=== PATIENT | male | born 1930 | race Caucasian/White ===

== ENCOUNTER 2016-10-23 23:41 | Inpatient (IN) | payer MEDICARE ==
[~2016-10-23] VITALS: Ht 165.1 cm; Wt 83.0 kg
[2016-10-23 23:45] VITALS: BP 141/90; PULSE 91; RESP 20; TEMP 99.1; O2SAT 100
[2016-10-24] VITALS (9 sets, daily range): BP systolic 99–170; BP diastolic 58–80; PULSE 78–109; RESP 15–20; TEMP 96.5–98.8; O2SAT 94–98
[2016-10-24] MEDS ORDERED: SODIUM CHLORID 0.9% 500 ML INJ 500 ML IV ONE (00:15)
[2016-10-24] MEDS ORDERED: SODIUM CHLORIDE 0.9% FLUSH 10 ML FLUSH IV FLUSH PRN ×2 (00:15→01:30)
[2016-10-24] MEDS ORDERED: ONDANSETRON HCL 4 MG/2 ML VIAL IVP ONE (00:15)
--- NOTE | 2016-10-24 00:32 | PD ---
HPI . weakness / loss of appetite Chief Complaint: General Weakness Time Seen by Provider: 23:43 Travel History International Travel<30 days: No Contact w/Intl Traveler<30days: No Traveled to known affect area: No History of Present Illness HPI 86 year old male with a history of diabetes presents via [facility] with complaints of generalized weakness and loss of appetite. Patient reports that since taking Bactrim for a UTI he has had no appetite and has been feeling weak. Per daughter, he took 3 days of single dose Bactrim. Daughter reports that he had "non-stop diarrhea" for the first two days of the medication and then nausea and vomiting on the third day. He has been laying on the couch ever since and has not been eating. He has some low back pain that he attributes to laying on the couch. [facility] reports his glucose was 280 prior to arrival. Patient is reporting some abdominal bloating. Last bowel movement was on Sunday which was diarrhea. He denies any fever, chills, abdominal pain, cough, shortness of breath, chest pain, dysuria or frequency. They are vacationing from [place] and have no PCP in the area. [facility] Past Medical History Diabetes: Yes Social History Alcohol Use: Yes (last useage 2012) Tobacco Use: No Substance Use: No Allergies-Medications (Allergen,Severity, Reaction): Coded Allergies: No Known Allergies (Unverified , 10/24/16) Reported Meds & Prescriptions Reported Meds & Active Scripts Active Reported Bactrim (Sulfamethoxazole-Trimethoprim) 400-80 Mg Tab 1 Tab PO DAILY 3 Days Warfarin 3 Mg Tab 3.5 Mg PO WITH DINNER Glipizide XL (Glipizide) 2.5 Mg Tom 2.5 Mg PO WITH DINNER Take with breakfast or first main meal of the day Metformin (Metformin HCl) 850 Mg Tab 850 Mg PO DAILY With a meal Vitamin B-12 (Cyanocobalamin) 1,000 Mcg Tab 1,000 Mcg PO DAILY Vitamin D3 (Cholecalciferol) 1,000 Unit Tab 1,000 Units PO DAILY Review of Systems General / Constitutional: Positive: Other (generalized weakness ), No: Fever, Chills HENT: No: Headaches Cardiovascular: No: Chest Pain or Discomfort, Palpitations, Tachycardia Respiratory: No: Cough, Shortness of Breath, Wheezing Gastrointestinal: Positive: Loss of Appetite, No: Nausea, Vomiting, Diarrhea, Abdominal Pain Genitourinary: No: Frequency, Dysuria Musculoskeletal: Positive: Pain (low back) Skin: No Rash Neurologic: No: Dizziness, Syncope Physical Exam Narrative GENERAL: Awake and alert elderly male in no acute distress. SKIN: Focused skin assessment warm/dry. No rashes. HEAD: Atraumatic. Normocephalic. EYES: Pupils equal and round, reactive to light. No scleral icterus. No injection or drainage. Bilateral pytergiums. ENT: No nasal bleeding or discharge. Mucous membranes dry. NECK: Trachea midline. No JVD. Neck supple. No lymphadenopathy. CARDIOVASCULAR: Normal rate, irregular rhythm. No murmurs, gallops, or rubs. RESPIRATORY: No accessory muscle use. Clear to auscultation. Breath sounds equal bilaterally. GASTROINTESTINAL: Abdomen distended. Diffusely tender. No rebound or guarding. Superficial veins noted over abdomen. MUSCULOSKELETAL: No obvious deformities. No clubbing. No cyanosis. No edema. NEUROLOGICAL: Awake and alert. No obvious cranial nerve deficits. Motor grossly within normal limits. Normal speech. PSYCHIATRIC: Appropriate mood and affect; insight and judgment normal. Data Data Last Documented VS Vital Signs Date Time Temp Pulse Resp B/P Pulse Ox O2 Delivery O2 Flow Rate FiO2 10/24/16 01:00 104 20 170/79 98 10/24/16 00:00 Room Air 10/23/16 23:45 99.1 Orders Complete Blood Count With Diff (10/24/16 00:12) Comprehensive Metabolic Panel (10/24/16 00:12) Lipase (10/24/16 00:12) Lactic Acid (10/24/16 00:12) Urinalysis - C+S If Indicated (10/24/16 00:12) Ct Abd/Pel W/O Iv Contrast (10/24/16 00:12) Iv Access Insert/Monitor (10/24/16 00:12) Ecg Monitoring (10/24/16 00:12) Oximetry (10/24/16 00:12) Ondansetron Inj (Zofran Inj) (10/24/16 00:15) Sodium Chloride 0.9% Flush (Ns Flush) (10/24/16 00:15) Electrocardiogram (10/24/16 00:12) Chest, Single Ap (10/24/16 00:12) Sodium Chlorid 0.9% 500 Ml Inj (Ns 500 M (10/24/16 00:15) Act Partial Throm Time (Ptt) (10/24/16 00:12) Prothrombin Time / Inr (Pt) (10/24/16 00:12) Urinary Catheter Insert/Apply (10/24/16 01:10) Admit To Inpatient (10/24/16 ) Vital Signs (Adult) Q4H (10/24/16 01:28) Activity Oob With Assistance (10/24/16 01:28) Yarder Operator / Telemetry .CONTINUOUS (10/24/16 01:28) Diet 1800 Ada Cons Carb (10/24/16 Breakfast) Diet Heart Healthy (10/24/16 Breakfast) Sodium Chloride 0.9% Flush (Ns Flush) (10/24/16 01:30) Sodium Chloride 0.9% Flush (Ns Flush) (10/24/16 09:00) Comprehensive Metabolic Panel (10/25/16 06:00) Complete Blood Count With Diff (10/25/16 06:00) Pt Request For Service (10/24/16 01:28) Case Management Consult (10/24/16 01:28) Naloxone Inj (Narcan Inj) (10/24/16 01:30) Inpatient Certification (10/24/16 ) Consult Urology (10/24/16 ) Bedside Glucose FREDDY.AC&HS (10/24/16 01:32) Blood Glucose Goal (Criteria) (10/24/16 01:32) Hypoglycemia 70 Mg/Dl Or < (10/24/16 01:32) Notify Dr: Other (10/24/16 01:32) Dextrose 50% In Greg (Vial) Inj (D50w (Vi (10/24/16 01:45) Glucagon Inj (Glucagon Inj) (10/24/16 01:45) Insulin Aspart Supplemtl Scale (Novolog (10/24/16 07:00) Admit Order (Ed Use Only) (10/24/16 01:33) Labs Laboratory Tests Test 10/24/16 10/24/16 10/24/16 00:10 00:22 01:30 White Blood Count 14.3 TH/MM3 Red Blood Count 3.42 MIL/MM3 Hemoglobin 10.4 GM/DL Hematocrit 31.4 % Mean Corpuscular Volume 91.7 FL Mean Corpuscular Hemoglobin 30.3 PG Mean Corpuscular Hemoglobin 33.1 % Concent Red Cell Distribution Width 13.1 % Platelet Count 267 TH/MM3 Mean Platelet Volume 7.9 FL Neutrophils (%) (Auto) 82.5 % Lymphocytes (%) (Auto) 6.8 % Monocytes (%) (Auto) 10.3 % Eosinophils (%) (Auto) 0.1 % Basophils (%) (Auto) 0.3 % Neutrophils # (Auto) 11.8 TH/MM3 Lymphocytes # (Auto) 1.0 TH/MM3 Monocytes # (Auto) 1.5 TH/MM3 Eosinophils # (Auto) 0.0 TH/MM3 Basophils # (Auto) 0.0 TH/MM3 CBC Comment DIFF FINAL Differential Comment Prothrombin Time 22.9 SEC Prothromb Time International 2.0 RATIO Ratio Activated Partial 34.7 SEC Thromboplast Time Sodium Level 134 MEQ/L Potassium Level 4.3 MEQ/L Chloride Level 100 MEQ/L Carbon Dioxide Level 23.0 MEQ/L Anion Gap 11 MEQ/L Blood Urea Nitrogen 55 MG/DL Creatinine 4.97 MG/DL Estimat Glomerular Filtration 11 ML/MIN Rate Random Glucose 247 MG/DL Calcium Level 7.8 MG/DL Total Bilirubin 0.5 MG/DL Aspartate Amino Transf 14 U/L (AST/SGOT) Alanine Aminotransferase 16 U/L (ALT/SGPT) Alkaline Phosphatase 69 U/L Total Protein 6.7 GM/DL Albumin 3.0 GM/DL Lipase 162 U/L Lactic Acid Level 1.7 mmol/L Urine Color YELLOW Urine Turbidity HAZY Urine pH 5.5 Urine Specific [place] 1.013 Urine Protein TRACE mg/dL Urine Glucose (UA) 300 mg/dL Urine Ketones NEG mg/dL Urine Occult Blood MOD Urine Nitrite NEG Urine Bilirubin NEG Urine Urobilinogen LESS THAN 2.0 MG/DL Urine Leukocyte Esterase LARGE Urine RBC 67 /hpf Urine WBC /hpf Urine WBC Clumps FEW Urine Amorphous Sediment RARE Urine Bacteria RARE /hpf Urine Mucus FEW /lpf Microscopic Urinalysis Comment CULTURE INDICATED MDM Medical Decision Making Medical Screen Exam Complete: Yes Emergency Medical Condition: Yes Interpretation(s) EKG reveals atrial fibrillation versus sinus arrhythmia with frequent supraventricular premature complexes. Last Impressions Chest X-Ray 10/24/16 0012 Signed Impressions: Service Date/Time: Monday, October 24, 2016 00:15 - CONCLUSION: No acute finding is identified. Jay Aldana MD Abdomen/Pelvis CT 10/24/16 0012 Signed Impressions: Service Date/Time: Monday, October 24, 2016 00:39 - CONCLUSION: 1. Very distended urinary bladder with mild hydronephrosis and hydroureter bilaterally. Additionally, the prostate gland is enlarged raising suspicion for bladder outlet obstruction. There are dependent stones in the urinary bladder measuring up to 6 mm. 2. Non acute findings included cholelithiasis, small hiatal hernia , moderate atherosclerotic disease, and sigmoid diverticulosis. Jay Aldana MD Laboratory Tests Test 10/24/16 10/24/16 10/24/16 00:10 00:22 01:30 White Blood Count 14.3 TH/MM3 Red Blood Count 3.42 MIL/MM3 Hemoglobin 10.4 GM/DL Hematocrit 31.4 % Mean Corpuscular Volume 91.7 FL Mean Corpuscular Hemoglobin 30.3 PG Mean Corpuscular Hemoglobin 33.1 % Concent Red Cell Distribution Width 13.1 % Platelet Count 267 TH/MM3 Mean Platelet Volume 7.9 FL Neutrophils (%) (Auto) 82.5 % Lymphocytes (%) (Auto) 6.8 % Monocytes (%) (Auto) 10.3 % Eosinophils (%) (Auto) 0.1 % Basophils (%) (Auto) 0.3 % Neutrophils # (Auto) 11.8 TH/MM3 Lymphocytes # (Auto) 1.0 TH/MM3 Monocytes # (Auto) 1.5 TH/MM3 Eosinophils # (Auto) 0.0 TH/MM3 Basophils # (Auto) 0.0 TH/MM3 CBC Comment DIFF FINAL Differential Comment Prothrombin Time 22.9 SEC Prothromb Time International 2.0 RATIO Ratio Activated Partial 34.7 SEC Thromboplast Time Sodium Level 134 MEQ/L Potassium Level 4.3 MEQ/L Chloride Level 100 MEQ/L Carbon Dioxide Level 23.0 MEQ/L Anion Gap 11 MEQ/L Blood Urea Nitrogen 55 MG/DL Creatinine 4.97 MG/DL Estimat Glomerular Filtration 11 ML/MIN Rate Random Glucose 247 MG/DL Calcium Level 7.8 MG/DL Total Bilirubin 0.5 MG/DL Aspartate Amino Transf 14 U/L (AST/SGOT) Alanine Aminotransferase 16 U/L (ALT/SGPT) Alkaline Phosphatase 69 U/L Total Protein 6.7 GM/DL Albumin 3.0 GM/DL Lipase 162 U/L Lactic Acid Level 1.7 mmol/L Urine Color YELLOW Urine Turbidity HAZY Urine pH 5.5 Urine Specific [place] 1.013 Urine Protein TRACE mg/dL Urine Glucose (UA) 300 mg/dL Urine Ketones NEG mg/dL Urine Occult Blood MOD Urine Nitrite NEG Urine Bilirubin NEG Urine Urobilinogen LESS THAN 2.0 MG/DL Urine Leukocyte Esterase LARGE Urine RBC 67 /hpf Urine WBC /hpf Urine WBC Clumps FEW Urine Amorphous Sediment RARE Urine Bacteria RARE /hpf Urine Mucus FEW /lpf Microscopic Urinalysis Comment CULTURE INDICATED Differential Diagnosis Differentials include dehydration, medication adverse reaction, hyponatremia, hypokalemia, gastroenteritis, ileus, pyelonephritis, diverticulitis. Narrative Course Patient presents with complaints of loss of appetite and generalized weakness. He attributes these symptoms to recent course of bactrim for UTI. Patient was put on monitor and continuos oximetry, IV fluids were administered. Labs and CT of the abdomen were ordered. Patient is on coumadin for atrial fibrillation so we will also check an INR. The patient's creatinine was 4.97, the patient has a history of underlying renal insufficiency, is had a creatinine as high 6, however, the daughter states that the creatinine levels improved. The patient was taken off of the Cipro but was maintained on metformin. CT of the abdomen and pelvis reveals a large and distended bladder with enlarged prostate and bilateral hydronephrosis consistent with obstructive uropathy. The patient then had a Perez catheter placed, will need admission for obstructive uropathy with repeat creatinine levels and may benefit from nephrology input. Therefore , the on-call medical service was paged for admission as the patient's primary physician is located in the [facility]. The patient's UA was positive for infection, therefore, the patient was administered cefepime 2 g intravenously as he does meet sepsis criteria with white count of 14.3, heart rate of 101 upon arrival, and acute renal failure. Sepsis Criteria SIRS Criteria (2 or more): Heart rate over 90, WBC > 29024, < 4000 or > 10% bands Sepsis Criteria (SIRS+source): Infect source susp/known Severe Sepsis (+one): Acute Oliguria/Renal Failure Criteria Outcome: Meets severe sepsis criteria Physician Communication Physician Communication The on-call medical service was paged for admission. I discussed the patient with Dr. Gómez who agrees with admission. Diagnosis Primary Impression: Obstructive uropathy Additional Impressions: Acute renal failure Qualified Code: N17.9 - Acute renal failure, unspecified acute renal failure type Complicated UTI (urinary tract infection) Admitting Information Admitting Physician Requests: Admit Condition: Stable Noel Pickering MD Oct 24, 2016 00:32
[2016-10-24 00:45] LABS: AUTOMATED NEUTROPHIL # 11.8 TH/MM3 (1.8-7.7); BASOPHIL % 0.3 % (0.0-2.0); EOSINOPHIL % 0.1 % (0.0-4.0); HEMATOCRIT 31.4 % (39.0-51.0); HEMO FLAGS DIFF FINAL; LYMPH % 6.8 % (9.0-44.0); MEAN CELL VOLUME 91.7 FL (80.0-100.0); MEAN CORPUSCULAR HEMOGLOBIN 30.3 PG (27.0-34.0); MEAN CORPUSCULAR HGB CONC 33.1 % (32.0-36.0); MONO % 10.3 % (0.0-8.0); NEUT % 82.5 % (16.0-70.0); PLATELET COUNT 267 TH/MM3 (150-450); RED BLOOD COUNT 3.42 MIL/MM3 (4.50-5.90); RED CELL DISTRIBUTION WIDTH 13.1 % (11.6-17.2); WHITE BLOOD COUNT 14.3 TH/MM3 (4.0-11.0)
--- NOTE | 2016-10-24 00:45 | RADRPT ---
EXAM DATE/TIME: 10/24/2016 00:15 [facility] COMPARISON: No previous studies available for comparison. INDICATIONS : Short of breath. MEDICAL HISTORY : None. SURGICAL HISTORY : None. ENCOUNTER: Initial ACUITY: 1 day PAIN SCORE: 0/10 LOCATION: Bilateral chest FINDINGS: Portable AP view of the chest demonstrates a normal-sized cardiac silhouette. No effusion, consolidat ion, or pneumothorax is visualized. The bones and soft tissues demonstrate no acute abnormality. EKG lines overlie the patient. CONCLUSION: No acute finding is identified. Jay Aldana MD on October 24, 2016 at 0:42 Board Certified Radiologist. This report was verified electronically.
[2016-10-24 00:48] LABS: ALT (GPT) 16 U/L (12-78); ANION GAP 11 MEQ/L (5-15); AST (GOT) 14 U/L (15-37); BLOOD UREA NITROGEN 55 MG/DL (7-18); CHLORIDE 100 MEQ/L (98-107); GLOMERULAR FILTRATION RATE 11 ML/MIN (>89); POTASSIUM 4.3 MEQ/L (3.5-5.1); SODIUM (NA) 134 MEQ/L (136-145)
[2016-10-24 00:50] LABS: ALKALINE PHOSPHATASE 69 U/L (45-117); TOTAL BILIRUBIN ADULT 0.5 MG/DL (0.2-1.0)
[2016-10-24 00:56] LABS: APTT (PATIENT) 34.7 SEC (24.3-30.1); PROTHROMBIN TIME - PATIENT 22.9 SEC (9.8-11.6)
[2016-10-24] MEDS ORDERED: METF850T PO (00:57)
[2016-10-24] MEDS ORDERED: CHOL20005 PO (00:57)
[2016-10-24] MEDS ORDERED: VITA10002 PO (00:57)
[2016-10-24] MEDS ORDERED: WARF-58 PO (00:57)
[2016-10-24] MEDS ORDERED: VITA100064 PO (00:57)
[2016-10-24] MEDS ORDERED: GLIP-158 PO (00:57)
--- NOTE | 2016-10-24 01:03 | RADRPT ---
EXAM DATE/TIME: 10/24/2016 00:39 [facility] COMPARISON: No previous studies available for comparison. INDICATIONS : General weakness with nausea and vomiting. Lower back pain. ORAL CONTRAST: No oral contrast ingested. RADIATION DOSE: 10.16 CTDIvol (mGy) MEDICAL HISTORY : Diabetes mellitus type 2. SURGICAL HISTORY : None. ENCOUNTER: Initial ACUITY: 3 days PAIN SCALE: 6/10 LOCATION: Bilateral lower back TECHNIQUE: Volumetric scanning of the abdomen and pelvis was performed. Using automated exposure control and ad justment of the mA and/or kV according to patient size, radiation dose was kept as low as reasonably achievable to obtain optimal diagnostic quality images. DICOM format image data is available electro nically for review and comparison. FINDINGS: LOWER LUNGS: There is atelectasis in the left lower lobe. Coronary artery calcification is present. LIVER: Homogeneous density without lesion. There are multiple punctate calcifications. There is no dilation of the biliary tree. There are multiple calcified stones in the gallbladder. SPLEEN: Normal size without lesion. There are multiple punctate calcifications. PANCREAS: Within normal limits. KIDNEYS: Normal in size and shape. There is no mass or stone. There is mild bilateral hydronephrosis and hydr oureter. ADRENAL GLANDS: Within normal limits. VASCULAR: There is no aortic aneurysm. There is moderate atherosclerotic disease. BOWEL/MESENTERY: The stomach, small bowel, and colon demonstrate no acute abnormality. There is no free intraperitone al air or fluid. There is sigmoid diverticulosis. A small hiatal hernia is present. ABDOMINAL WALL: Within normal limits. RETROPERITONEUM: There is no lymphadenopathy. BLADDER: Urinary bladder is very distended and there are dependent stones measuring up to 6 mm. No wall thicke albert or mass. REPRODUCTIVE: Prostate gland is enlarged with calcification. INGUINAL: There is no lymphadenopathy or hernia. MUSCULOSKELETAL: There are degenerative changes of the spine. CONCLUSION: 1. Very distended urinary bladder with mild hydronephrosis and hydroureter bilaterally. Additionally, the prostate gland is enlarged raising suspicion for bladder outlet obstruction. There are dependent stones in the urinary bladder measuring up to 6 mm. 2. Non acute findings included cholelithiasis, small hiatal hernia, moderate atherosclerotic disease, and sigmoid diverticulosis. Jay Aldana MD on October 24, 2016 at 0:56 Board Certified Radiologist. This report was verified electronically.
[2016-10-24] MEDS ORDERED: BACT400T PO (01:24)
[2016-10-24] MEDS ORDERED: NALOXONE HCL 0.4 MG/ML AMP IV PRN (01:30)
[2016-10-24] MEDS ORDERED: DEXTROSE 50% IN WATER 50 ML VIAL(D50) IV PRN (01:45)
[2016-10-24] MEDS ORDERED: GLUCAGON 1 MG/ML VIAL OTHER PRN (01:45)
[2016-10-24 01:55] LABS: BACTERIA, URINE RARE /hpf; BLOOD, URINE MOD (NEG); COMMENT (UR) CULTURE INDICATED; CULTURE IF INDICATED CULTURE INDICATED; GLUCOSE,URINE 300 mg/dL (NEG); KETONE, URINE NEG (NEG); MUCUS URINE FEW /lpf (OCC); NITRITE,URINE NEG (NEG); PH, URINE 5.5 (5.0-8.5); URINE COLOR YELLOW (YELLW/STRAW)
[2016-10-24] MEDS ORDERED: cefTRIAXone INJ 1,000 MG in SODIUM CHLORIDE 0.9% INJ 100 ML IV ONE (02:30)
[2016-10-24] MEDS ORDERED: CEFEPIME INJ 2,000 MG in SODIUM CHLORIDE 0.9% INJ 100 ML IV ONE (02:30)
--- NOTE | 2016-10-24 04:43 | HHI.HP ---
[facility]Staff Admission Diagnosis obstructive uropathy, acute on chronic renal failure Diagnoses: (1) Obstructive uropathy Chief Complaint: Bladder distention and discomfort Travel History International Travel<30 Days: No Contact w/Intl Traveler <30 Da: No Traveled to Known Affected Are: No History of Present Illness Written by Camila Barber, acting as scribe for Dr. Gómez on 10/24/16 at 04:20. The patient states he was not urinating "right". The patient reports that he felt distended and "bloated" in the suprapubic region; reports a little bit of dysuria; denies hematuria. The patient's daughter is at the bedside and assists with history - patient anxious to go home. She states he had some nausea with vomiting; denies black or red stool; was on a medication for UTI ( Bactrim) - treated in [place] - has taken it for 3 days; had some diarrhea also. Denies fever. Poor appetite; increasing weakness. Visiting from [place] - his plan is to fly home on Sunday. Review of Systems Except as stated in HPI: all other systems reviewed are Neg Past Family Social History Past Medical History Hypertension Diabetes Mellitus Chronic kidney disease Atrial fibrillation CKD Denies CAD, CHF, COPD, liver problems, DVT, PE, seizures, cancers, prostate problems, or thyroid problems . Past Surgical History denies surgeries . Reported Medications Reported Meds & Active Scripts Active Reported Bactrim (Sulfamethoxazole-Trimethoprim) 400-80 Mg Tab 1 Tab PO DAILY 3 Days Warfarin 3 Mg Tab 3.5 Mg PO WITH DINNER Glipizide XL (Glipizide) 2.5 Mg Tom 2.5 Mg PO WITH DINNER Take with breakfast or first main meal of the day Metformin (Metformin HCl) 850 Mg Tab 850 Mg PO DAILY With a meal Vitamin B-12 (Cyanocobalamin) 1,000 Mcg Tab 1,000 Mcg PO DAILY Vitamin D3 (Cholecalciferol) 1,000 Unit Tab 1,000 Units PO DAILY . Allergies: Coded Allergies: No Known Allergies (Unverified , 10/24/16) Active Ordered Medications Current Medications Ondansetron HCl (Zofran Inj) 4 mg ONCE ONCE IVP Last administered on 01:00; Start 10/24/16 at 00:15; Stop 10/24/16 at 00:16; Status DC Sodium Chloride 2 ml 2 ml UNSCH PRN IV FLUSH FLUSH AFTER USING IV ACCESS; Start 10/24/16 at 00:15; Stop 10/24/16 at 01:33; Status DC Sodium Chloride (NS 500 ml Inj) 500 ml @ 500 mls/hr BOLUS ONCE IV Last administered on 10/24/16 01:00; Start 10/24/16 at 00:15; Stop 10/24/16 at 01:14 ; Status DC Sodium Chloride (NS Flush) 2 ml UNSCH PRN IV FLUSH FLUSH AFTER USING IV ACCESS ; Start 10/24/16 at 01:30 Sodium Chloride (NS Flush) 2 ml BID IV FLUSH ; Start 10/24/16 at 09:00 Naloxone HCl (Narcan Inj) 0.4 mg UNSCH PRN IV SEE LABEL COMMENTS; Start at 01:30 Dextrose (D50w (Vial) Inj) 50 ml UNSCH PRN IV HYPOGLYCEMIA-SEE COMMENTS; Start 10/24/16 at 01:45 Glucagon (Glucagon Inj) 1 mg UNSCH PRN OTHER HYPOGLYCEMIA-SEE COMMENTS; Start 10/24/16 at 01:45 Insulin Aspart 1 1 ACHS SLIDING SCALE SQ ; Start 10/24/16 at 07:00 Ceftriaxone Sodium 1000 mg/ Sodium Chloride 100 ml @ 200 mls/hr ONCE ONCE IV ; Start 10/24/16 at 02:30; Stop 10/24/16 at 02:30; Status DC Cefepime HCl 2000 mg/Sodium Chloride 100 ml @ 200 mls/hr ONCE ONCE IV Last administered on 10/24/16 03:07; Start 10/24/16 at 02:30; Stop 10/24/16 at 02:59 ; Status DC Cefepime HCl/ Sodium Chloride (Maxipime Inj/NS Inj) 100 ml @ 200 mls/hr Q12H IV ; Start 10/24/16 at 15:00; Status UNV . Family History Daughter with diabetes mellitus, necrotizing fasciitis . Social History Tobacco: denies Alcohol: rare social use Illicit Drugs: denies . Physical Exam Vital Signs Vital Signs Date Time Temp Pulse Resp B/P Pulse Ox O2 Delivery O2 Flow Rate FiO2 10/24/16 03:00 83 20 167/80 98 Room Air 10/24/16 01:42 101 20 167/80 98 Room Air 10/24/16 01:00 104 20 170/79 98 10/24/16 00:00 90 20 98 Room Air 10/23/16 23:45 99.1 91 20 141/90 100 10/23/16 23:45 100 Room Air Physical Exam GENERAL: This is an elderly male patient, in no apparent distress. SKIN: No rashes, ecchymoses or lesions. Cool and dry. HEAD: Atraumatic. Normocephalic. EYES: No scleral icterus. No injection or drainage. ENT: Nose without bleeding, purulent drainage. NECK: Trachea midline. No JVD or lymphadenopathy. CARDIOVASCULAR: Regular rate and rhythm without murmurs, gallops, or rubs. RESPIRATORY: Clear to auscultation. Breath sounds equal bilaterally. No wheezes , rales, or rhonchi. GASTROINTESTINAL: Abdomen soft, non-tender, nondistended. No guarding. : no bladder distention palpated; pt has jacinto placed in ER due to retention- drained 1600cc per er report MUSCULOSKELETAL: Extremities without clubbing, cyanosis, or edema. No calf tenderness. NEUROLOGICAL: Awake and alert. Motor and sensory grossly within normal limits. Normal speech. . . Laboratory Laboratory Tests Test 10/24/16 10/24/16 10/24/16 00:10 00:22 01:30 White Blood Count 14.3 Red Blood Count 3.42 Hemoglobin 10.4 Hematocrit 31.4 Mean Corpuscular Volume 91.7 Mean Corpuscular Hemoglobin 30.3 Mean Corpuscular Hemoglobin 33.1 Concent Red Cell Distribution Width 13.1 Platelet Count 267 Mean Platelet Volume 7.9 Neutrophils (%) (Auto) 82.5 Lymphocytes (%) (Auto) 6.8 Monocytes (%) (Auto) 10.3 Eosinophils (%) (Auto) 0.1 Basophils (%) (Auto) 0.3 Neutrophils # (Auto) 11.8 Lymphocytes # (Auto) 1.0 Monocytes # (Auto) 1.5 Eosinophils # (Auto) 0.0 Basophils # (Auto) 0.0 CBC Comment DIFF FINAL Differential Comment Prothrombin Time 22.9 Prothromb Time International 2.0 Ratio Activated Partial 34.7 Thromboplast Time Sodium Level 134 Potassium Level 4.3 Chloride Level 100 Carbon Dioxide Level 23.0 Anion Gap 11 Blood Urea Nitrogen 55 Creatinine 4.97 Estimat Glomerular Filtration 11 Rate Random Glucose 247 Calcium Level 7.8 Total Bilirubin 0.5 Aspartate Amino Transf 14 (AST/SGOT) Alanine Aminotransferase 16 (ALT/SGPT) Alkaline Phosphatase 69 Total Protein 6.7 Albumin 3.0 Lipase 162 Lactic Acid Level 1.7 Urine Color YELLOW Urine Turbidity HAZY Urine pH 5.5 Urine Specific [place] 1.013 Urine Protein TRACE Urine Glucose (UA) 300 Urine Ketones NEG Urine Occult Blood MOD Urine Nitrite NEG Urine Bilirubin NEG Urine Urobilinogen LESS THAN 2.0 Urine Leukocyte Esterase LARGE Urine RBC 67 Urine WBC Urine WBC Clumps FEW Urine Amorphous Sediment RARE Urine Bacteria RARE Urine Mucus FEW Microscopic Urinalysis Comment CULTURE INDICATED Date/Time Procedure Status Source Growth 10/24/16 02:48 Aerobic Blood Culture Received Blood Peripheral Pending 10/24/16 02:48 Anaerobic Blood Culture Received Blood Peripheral Pending 10/24/16 01:30 Urine Culture Received Urine Clean Catch Pending Result Diagram: 10/24/16 0010 10/24/16 0010 Imaging Last Impressions Chest X-Ray 10/24/1611 Signed Impressions: Service Date/Time: Monday, October 24, 2016 00:15 - CONCLUSION: No acute finding is identified. Jay Aldana MD Abdomen/Pelvis CT 10/24/1611 Signed Impressions: Service Date/Time: Monday, October 24, 2016 00:39 - CONCLUSION: 1. Very distended urinary bladder with mild hydronephrosis and hydroureter bilaterally. Additionally, the prostate gland is enlarged raising suspicion for bladder outlet obstruction. There are dependent stones in the urinary bladder measuring up to 6 mm. 2. Non acute findings included cholelithiasis, small hiatal hernia , moderate atherosclerotic disease, and sigmoid diverticulosis. Jay Aldana MD . Assessment and Plan Problem List: (1) Obstructive uropathy ICD Code: N13.9 Status: Acute (2) Complicated UTI (urinary tract infection) ICD Code: N39.0 Status: Acute (3) Acute renal failure ICD Code: N17.9 Status: Acute Assessment and Plan 86 y/o male visiting from [place] with his daughter presented with generalized weakness and poor appetite. He was found to have obstructive uropathy upon ER evaluation. Obstructive uropathy - Abdomen/Pelvis CT -very distended urinary bladder with mild hydronephrosis and hydroureter bilaterally. Enlarged prostate gland and dependent stones and urinary bladder measuring up to 6 mm. - Jacinto catheter placed in ER due to retention- 1600cc drained - urology consulted UTI - Cefepime 2 grams IV q12h - await urine culture results - adjust treatment if indicated Acute renal failure - BUN 55, creatinine 4.97, estimated GFR 11 - no prior labs to compare to - IV fluid hydration in ER - Repeat labs in a.m. and follow trends in renal indices - Avoid nephrotoxins - Consider nephrology consultation Type 2 Diabetes Mellitus - Accu-Cheks before meals and at bedtime with low-dose NovoLog sliding scale coverage - Hypoglycemia protocol - Monitor trends and blood glucose readings and adjust treatments as indicated - 1800 kcal ADA diet DVT prophylaxis - Heparin 5000 units subq q8h . This note was transcribed by rigo [Camila Barber]. I, Dr. Ramakrishna Gómez personally performed the history, physical exam, and medical decision making; and confirmed the accuracy of the information in the transcribed note. Authenticated by Dr. Ramakrishna Gómez on 10/24/16 at 04:20. Discussed Condition With ER physician, patient, and patient's daughter . Physician Certification 2 Midnight Certification Type: Admission for Inpatient Services Order for Inpatient Services The services are ordered in accordance with Medicare regulations or non- Medicare payer requirements, as applicable. In the case of services not specified as inpatient-only, they are appropriately provided as inpatient services in accordance with the 2-midnight benchmark. Estimated LOS (days): 3 days is the estimated time the patient will need to remain in the hospital, assuming treatment plan goals are met and no additional complications. Post-Hospital Plan: Home Problem Qualifiers (1) Acute renal failure: Qualified Code: N17.9 - Acute renal failure, unspecified acute renal failure type Camila Barber Oct 24, 2016 04:43 Ramakrishna Gómez MD Oct 24, 2016 08:39
[2016-10-24] MEDS: INSULIN ASPART SUPPLEMENTAL SCALE SQ SCH ×4 (07:00→21:58)
[2016-10-24] MEDS: SODIUM CHLORIDE 0.9% FLUSH 10 ML FLUSH IV FLUSH SCH ×2 (11:07→22:00)
--- NOTE | 2016-10-24 11:26 | HHI.PR ---
Subjective Remarks Follow-up for obstructive uropathy, abdominal pain and acute renal failure Patient stated that after Perez was placed his abdominal pain resolved. Denies any abdominal pain at the moment. Patient's very anxious to go home today. Otherwise no other complaints. His daughters at the bedside during the interview. Objective Vitals Vital Signs Date Time Temp Pulse Resp B/P Pulse Ox O2 Delivery O2 Flow Rate FiO2 10/24/16 07:30 78 15 96 Room Air 10/24/16 03:00 83 20 167/80 98 Room Air 10/24/16 01:42 101 20 167/80 98 Room Air 10/24/16 01:00 104 20 170/79 98 10/24/16 00:00 90 20 98 Room Air 10/23/16 23:45 99.1 91 20 141/90 100 10/23/16 23:45 100 Room Air I/O 10/23/16 10/23/16 10/23/16 10/24/16 10/24/16 10/24/16 07:00 15:00 23:00 07:00 15:00 23:00 Output Total 2250 ml Balance -2250 ml Output Urine Total 2250 ml Result Diagram: 10/24/16 0010 10/24/16 0010 Imaging Last Impressions Chest X-Ray 10/24/16 001 Signed Impressions: Service Date/Time: Monday, October 24, 2016 00:15 - CONCLUSION: No acute finding is identified. Jay Aldana MD Abdomen/Pelvis CT 10/24/1611 Signed Impressions: Service Date/Time: Monday, October 24, 2016 00:39 - CONCLUSION: 1. Very distended urinary bladder with mild hydronephrosis and hydroureter bilaterally. Additionally, the prostate gland is enlarged raising suspicion for bladder outlet obstruction. There are dependent stones in the urinary bladder measuring up to 6 mm. 2. Non acute findings included cholelithiasis, small hiatal hernia , moderate atherosclerotic disease, and sigmoid diverticulosis. Jay Aldana MD Objective Remarks GENERAL: in NAD CARDIOVASCULAR: Regular rate and rhythm without murmurs, gallops, or rubs. RESPIRATORY: Breath sounds equal bilaterally. No accessory muscle use. GASTROINTESTINAL: Abdomen soft, non-tender,obese belly. BACK: Nontender without obvious deformity. No CVA tenderness. Medications and IVs Current Medications Ondansetron HCl (Zofran Inj) 4 mg ONCE ONCE IVP Last administered on 01:00; Start 10/24/16 at 00:15; Stop 10/24/16 at 00:16; Status DC Sodium Chloride 2 ml 2 ml UNSCH PRN IV FLUSH FLUSH AFTER USING IV ACCESS; Start 10/24/16 at 00:15; Stop 10/24/16 at 01:33; Status DC Sodium Chloride (NS 500 ml Inj) 500 ml @ 500 mls/hr BOLUS ONCE IV Last administered on 10/24/16 01:00; Start 10/24/16 at 00:15; Stop 10/24/16 at 01:14 ; Status DC Sodium Chloride (NS Flush) 2 ml UNSCH PRN IV FLUSH FLUSH AFTER USING IV ACCESS ; Start 10/24/16 at 01:30 Sodium Chloride (NS Flush) 2 ml BID IV FLUSH Last administered on 10/24/16 11: 07; Start 10/24/16 at 09:00 Naloxone HCl (Narcan Inj) 0.4 mg UNSCH PRN IV SEE LABEL COMMENTS; Start at 01:30 Dextrose (D50w (Vial) Inj) 50 ml UNSCH PRN IV HYPOGLYCEMIA-SEE COMMENTS; Start 10/24/16 at 01:45 Glucagon (Glucagon Inj) 1 mg UNSCH PRN OTHER HYPOGLYCEMIA-SEE COMMENTS; Start 10/24/16 at 01:45 Insulin Aspart 1 1 ACHS SLIDING SCALE SQ ; Start 10/24/16 at 07:00 Ceftriaxone Sodium 1000 mg/ Sodium Chloride 100 ml @ 200 mls/hr ONCE ONCE IV ; Start 10/24/16 at 02:30; Stop 10/24/16 at 02:30; Status DC Cefepime HCl 2000 mg/Sodium Chloride 100 ml @ 200 mls/hr ONCE ONCE IV Last administered on 10/24/16 03:07; Start 10/24/16 at 02:30; Stop 10/24/16 at 02:59 ; Status DC Cefepime HCl/ Sodium Chloride (Maxipime Inj/NS Inj) 100 ml @ 200 mls/hr Q24H IV ; Start 10/25/16 at 03:00 Heparin Sodium (Porcine) (Heparin Inj) 5,000 units Q8HR SQ ; Start 10/24/16 at 14:00 A/P Problem List: (1) Obstructive uropathy ICD Code: N13.9 Status: Acute (2) Complicated UTI (urinary tract infection) ICD Code: N39.0 Status: Acute (3) Acute renal failure ICD Code: N17.9 Status: Acute Assessment and Plan 86 y/o male visiting from [place] with his daughter presented with generalized weakness and poor appetite. He was found to have obstructive uropathy upon ER evaluation. Obstructive uropathy - Abdomen/Pelvis CT showed very distended urinary bladder with mild hydronephrosis and hydroureter bilaterally. Enlarged prostate gland and dependent stones and urinary bladder measuring up to 6 mm. - Perez catheter placed in ER due to retention- 1600cc drained and symptoms resolved. - urology consulted pending report. UTI - Cefepime 2 grams IV q12h - await urine culture results - adjust treatment if indicated Acute renal failure - BUN 55, creatinine 4.97, estimated GFR 11 - no prior labs to compare to. Will try to obtain a baseline creatinine/BUN from his PCP. Per patient has no history of renal disease. - Continue with IV fluids. - Will obtain a renal ultrasound. -Strict ins and outs. Continue to monitor creatinine. Type 2 Diabetes Mellitus - Accu-Cheks before meals and at bedtime with low-dose NovoLog sliding scale coverage - Hypoglycemia protocol - Monitor trends and blood glucose readings and adjust treatments as indicated - 1800 kcal ADA diet DVT prophylaxis - Heparin 5000 units subq q8h Problem Qualifiers (1) Acute renal failure: Qualified Code: N17.9 - Acute renal failure, unspecified acute renal failure type Sherice Cook MD Oct 24, 2016 11:25
--- NOTE | 2016-10-24 13:10 | PD.CONS ---
HPI Service Urology Consult Requested By Reason for Consult Urinary retention Primary Care Physician Non-Staff Diagnosis: (1) Obstructive uropathy ICD Code: N13.9 (2) Complicated UTI (urinary tract infection) ICD Code: N39.0 (3) Acute renal failure ICD Code: N17.9 History of Present Illness 86 old gentleman visiting from the [place] who presented to the emergency room with difficulty voiding and complaints of suprapubic pain. Patient was noted to be in urinary retention and had an indwelling Perez catheter placed with significant improvement in his symptoms. Patient reports that he was recently started on antibiotics for a presumed urinary tract infection. Limited workup included a CT scan of the abdomen and pelvis that demonstrated a markedly distended urinary bladder with mild bilateral hydroureteronephrosis. Other changes included a enlarged prostate and multiple bladder stones. At the time of consultation the patient reported that he was feeling much better with indwelling Perez and was anxious to go home. Review of Systems Constitutional: DENIES: Fever, Night Sweats Gastrointestinal: COMPLAINS OF: Abdominal pain (resolved) Genitourinary: COMPLAINS OF: Urinary frequency, DENIES: Hematuria Except as stated in HPI: all other systems reviewed are Neg Past Family Social History Past Medical History Hypertension Diabetes mellitus Chronic kidney disease Atrial fibrillation Past Surgical History Denies major surgery Reported Medications Refer to EMR Allergies: Coded Allergies: No Known Allergies (Unverified , 10/24/16) Active Ordered Medications Refer to EMR Family History Daughter with history diabetes mellitus Social History Denies history tobacco use Denies intravenous drug abuse history Occasional alcohol use Physical Exam Vital Signs Date Time Temp Pulse Resp B/P Pulse Ox O2 Delivery O2 Flow Rate FiO2 10/24/16 11:30 98.7 80 18 124/73 94 10/24/16 07:30 78 15 96 Room Air 10/24/16 03:00 83 20 167/80 98 Room Air 10/24/16 01:42 101 20 167/80 98 Room Air 10/24/16 01:00 104 20 170/79 98 10/24/16 00:00 90 20 98 Room Air 10/23/16 23:45 99.1 91 20 141/90 100 10/23/16 23:45 100 Room Air Physical Exam GENERAL: This is a well-nourished, well-developed patient, in no apparent distress. SKIN: No rashes, ecchymoses or lesions. Cool and dry. HEAD: Atraumatic. Normocephalic. No temporal or scalp tenderness. EYES: Pupils equal round and reactive. Extraocular motions intact. No scleral icterus. No injection or drainage. ENT: Nose without bleeding, purulent drainage or septal hematoma. Throat without erythema, tonsillar hypertrophy or exudate. Uvula midline. Airway patent. NECK: Trachea midline. No JVD or lymphadenopathy. Supple, nontender, no meningeal signs. CARDIOVASCULAR: Regular rate and rhythm without murmurs, gallops, or rubs. RESPIRATORY: Clear to auscultation. Breath sounds equal bilaterally. No wheezes , rales, or rhonchi. GASTROINTESTINAL: Abdomen soft, non-tender, nondistended. No hepato-splenomegaly , or palpable masses. No guarding. GENITOURINARY: Perez catheter in place draining clear yellow urine. MUSCULOSKELETAL: Extremities without clubbing, cyanosis, or edema. No joint tenderness, effusion, or edema noted. No calf tenderness. Negative Homans sign bilaterally. NEUROLOGICAL: Awake and alert. Cranial nerves II through XII intact. Motor and sensory grossly within normal limits. Five out of 5 muscle strength in all muscle groups. Normal speech. Laboratory Tests Test 10/24/16 10/24/16 10/24/16 00:10 00:22 01:30 White Blood Count 14.3 Red Blood Count 3.42 Hemoglobin 10.4 Hematocrit 31.4 Mean Corpuscular Volume 91.7 Mean Corpuscular Hemoglobin 30.3 Mean Corpuscular Hemoglobin 33.1 Concent Red Cell Distribution Width 13.1 Platelet Count 267 Mean Platelet Volume 7.9 Neutrophils (%) (Auto) 82.5 Lymphocytes (%) (Auto) 6.8 Monocytes (%) (Auto) 10.3 Eosinophils (%) (Auto) 0.1 Basophils (%) (Auto) 0.3 Neutrophils # (Auto) 11.8 Lymphocytes # (Auto) 1.0 Monocytes # (Auto) 1.5 Eosinophils # (Auto) 0.0 Basophils # (Auto) 0.0 CBC Comment DIFF FINAL Differential Comment Prothrombin Time 22.9 Prothromb Time International 2.0 Ratio Activated Partial 34.7 Thromboplast Time Sodium Level 134 Potassium Level 4.3 Chloride Level 100 Carbon Dioxide Level 23.0 Anion Gap 11 Blood Urea Nitrogen 55 Creatinine 4.97 Estimat Glomerular Filtration 11 Rate Random Glucose 247 Calcium Level 7.8 Total Bilirubin 0.5 Aspartate Amino Transf 14 (AST/SGOT) Alanine Aminotransferase 16 (ALT/SGPT) Alkaline Phosphatase 69 Total Protein 6.7 Albumin 3.0 Lipase 162 Lactic Acid Level 1.7 Urine Color YELLOW Urine Turbidity HAZY Urine pH 5.5 Urine Specific [place] 1.013 Urine Protein TRACE Urine Glucose (UA) 300 Urine Ketones NEG Urine Occult Blood MOD Urine Nitrite NEG Urine Bilirubin NEG Urine Urobilinogen LESS THAN 2.0 Urine Leukocyte Esterase LARGE Urine RBC 67 Urine WBC Urine WBC Clumps FEW Urine Amorphous Sediment RARE Urine Bacteria RARE Urine Mucus FEW Microscopic Urinalysis Comment CULTURE INDICATED Date/Time Procedure Status Source Growth 10/24/16 02:48 Aerobic Blood Culture Received Blood Peripheral Pending 10/24/16 02:48 Anaerobic Blood Culture Received Blood Peripheral Pending 10/24/16 01:30 Urine Culture Received Urine Clean Catch Pending Result Diagram: 10/24/16 0010 10/24/169 Personally reviewed images: Yes Imaging Last Impressions Chest X-Ray 10/24/1611 Signed Impressions: Service Date/Time: Monday, October 24, 2016 00:15 - CONCLUSION: No acute finding is identified. Jay Aldana MD Abdomen/Pelvis CT 10/24/1611 Signed Impressions: Service Date/Time: Monday, October 24, 2016 00:39 - CONCLUSION: 1. Very distended urinary bladder with mild hydronephrosis and hydroureter bilaterally. Additionally, the prostate gland is enlarged raising suspicion for bladder outlet obstruction. There are dependent stones in the urinary bladder measuring up to 6 mm. 2. Non acute findings included cholelithiasis, small hiatal hernia , moderate atherosclerotic disease, and sigmoid diverticulosis. Jay Aldana MD Assessment and Plan Assessment and Plan Urologic impression: 1. Urinary retention related to obstructing prostate 2. Bladder calculi related to poor bladder emptying secondary to BPH Recommendations: #1 maintaining Perez catheter to gravity drainage #2 patient advised to follow up with a local urologist back in [place] regarding further management Problem Qualifiers (1) Acute renal failure: Qualified Code: N17.9 - Acute renal failure, unspecified acute renal failure type Issa Simpson MD Oct 24, 2016 13:10
--- NOTE | 2016-10-24 14:12 | EKG ---
Date Performed: 10/24/2016 Time Performed: 01:15:14 PTAGE: 86 years EKG: Wandering atrial pacemaker Possible LVH by voltage NO PREVIOUS TRACING DOCTOR: Wisam Nolan Interpretating Date/Time 10/24/2016 14:10:49
--- NOTE | 2016-10-24 15:27 | RADRPT ---
EXAM DATE/TIME: 10/24/2016 13:55 [facility] COMPARISON: No previous studies available for comparison. INDICATIONS : Increased Bun and Creatinine. MEDICAL HISTORY : Diabetic. SURGICAL HISTORY : None. ENCOUNTER: Initial ACUITY: 3 days PAIN SCORE: 2/10 LOCATION: Bilateral flank MEASUREMENTS: RIGHT KIDNEY: 11.1 x 5.2 x 5.6 cm LEFT KIDNEY: 10.6 x 4.6 x 5.6 cm FINDINGS: RIGHT KIDNEY: Renal cortex is normal in thickness and echotexture. No hydronephrosis, stone, or mass. LEFT KIDNEY: Mild renal cortical thinning. No hydronephrosis. BLADDER: Decompressed with Perez catheter CONCLUSION: No hydronephrosis. Jay Carcamo MD on October 24, 2016 at 15:24 Board Certified Radiologist. This report was verified electronically.
[2016-10-24] MEDS: HEPARIN SODIUM - SQ 10,000 UNITS/ML VIAL SQ SCH (22:01)
[2016-10-25] VITALS (7 sets, daily range): BP systolic 116–136; BP diastolic 59–64; PULSE 57–81; RESP 16–20; TEMP 97.2–98.4; O2SAT 94–98
[2016-10-25] MEDS ORDERED: CEFEPIME INJ 2,000 MG in SODIUM CHLORIDE 0.9% INJ 100 ML IV SCH (03:00)
[2016-10-25] MEDS: HEPARIN SODIUM - SQ 10,000 UNITS/ML VIAL SQ SCH ×2 (07:00→14:00)
[2016-10-25] MEDS: INSULIN ASPART SUPPLEMENTAL SCALE SQ SCH ×3 (07:36→16:00)
[2016-10-25 07:57] LABS: BASOPHIL % 0.5 % (0.0-2.0); EOSINOPHIL # 0.2 TH/MM3 (0-0.4); EOSINOPHIL % 2.6 % (0.0-4.0); HEMATOCRIT 29.5 % (39.0-51.0); HEMO FLAGS DIFF FINAL; LYMPH % 16.9 % (9.0-44.0); LYMPHOCYTE # 1.3 TH/MM3 (1.0-4.8); MEAN CELL VOLUME 92.8 FL (80.0-100.0); MEAN CORPUSCULAR HEMOGLOBIN 30.2 PG (27.0-34.0); MEAN CORPUSCULAR HGB CONC 32.6 % (32.0-36.0); MONO % 14.8 % (0.0-8.0); NEUT % 65.2 % (16.0-70.0); PLATELET COUNT 245 TH/MM3 (150-450); RED BLOOD COUNT 3.18 MIL/MM3 (4.50-5.90); RED CELL DISTRIBUTION WIDTH 13.1 % (11.6-17.2); WHITE BLOOD COUNT 7.6 TH/MM3 (4.0-11.0)
[2016-10-25 08:35] LABS: ALKALINE PHOSPHATASE 54 U/L (45-117); ALT (GPT) 14 U/L (12-78); ANION GAP 8 MEQ/L (5-15); AST (GOT) 15 U/L (15-37); BICARBONATE 25.6 MEQ/L (21.0-32.0); BLOOD UREA NITROGEN 51 MG/DL (7-18); CHLORIDE 105 MEQ/L (98-107); GLOMERULAR FILTRATION RATE 19 ML/MIN (>89); POTASSIUM 4.5 MEQ/L (3.5-5.1); SODIUM (NA) 139 MEQ/L (136-145); TOTAL BILIRUBIN ADULT 0.5 MG/DL (0.2-1.0)
[2016-10-25] MEDS: SODIUM CHLORIDE 0.9% FLUSH 10 ML FLUSH IV FLUSH SCH (09:31)
--- NOTE | 2016-10-25 15:46 | HHI.DCPOC ---
Discharge Care Plan Diagnosis: (1) Acute renal failure (2) Obstructive uropathy Goals to Promote Your Health * To prevent worsening of your condition and complications * To maintain your health at the optimal level Directions to Meet Your Goals Take your medications as prescribed Follow your dietary instruction Follow activity as directed Keep your appointments as scheduled Take your immunizations and boosters as scheduled If your symptoms worsen call your PCP, if no PCP go to Urgent Care Center or Emergency Room Smoking is Dangerous to Your Health. Avoid second hand smoke Call the 24-hour hour crisis hotline for domestic abuse at Sherice Cook MD Oct 25, 2016 15:46
--- NOTE | 2016-10-25 15:49 | HHI.DS ---
Discharge Summary Admission Date Oct 24, 2016 at 01:35 Discharge Date: Oct 25, 2016 Admitting Diagnosis obstructive uropathy, acute on chronic renal failure (1) Obstructive uropathy ICD Code: N13.9 Diagnosis: Principal (2) Acute renal failure ICD Code: N17.9 Diagnosis: Principal Procedures see hospital course. Brief History - From Admission The patient states he was not urinating "right". The patient reports that he felt distended and "bloated" in the suprapubic region; reports a little bit of dysuria; denies hematuria. The patient's daughter is at the bedside and assists with history - patient anxious to go home. She states he had some nausea with vomiting; denies black or red stool; was on a medication for UTI ( Bactrim) - treated in [place] - has taken it for 3 days; had some diarrhea also. Denies fever. Poor appetite; increasing weakness. Visiting from [place] - his plan is to fly home on Sunday. CBC/BMP: 10/25/16 0552 10/25/16 0552 Significant Findings Laboratory Tests Test 10/24/16 10/24/16 10/25/16 00:10 01:30 05:52 White Blood Count 14.3 TH/MM3 (4.0-11.0) Red Blood Count 3.42 MIL/MM3 3.18 MIL/MM3 (4.50-5.90) (4.50-5.90) Hemoglobin 10.4 GM/DL 9.6 GM/DL (13.0-17.0) (13.0-17.0) Hematocrit 31.4 % 29.5 % (39.0-51.0) (39.0-51.0) Neutrophils (%) (Auto) 82.5 % (16.0-70.0) Lymphocytes (%) (Auto) 6.8 % (9.0-44.0) Monocytes (%) (Auto) 10.3 % 14.8 % (0.0-8.0) (0.0-8.0) Neutrophils # (Auto) 11.8 TH/MM3 (1.8-7.7) Monocytes # (Auto) 1.5 TH/MM3 1.1 TH/MM3 (0-0.9) (0-0.9) Prothrombin Time 22.9 SEC (9.8-11.6) Activated Partial 34.7 SEC Thromboplast Time (24.3-30.1) Sodium Level 134 MEQ/L (136-145) Blood Urea Nitrogen 55 MG/DL (7-18) 51 MG/DL (7-18) Creatinine 4.97 MG/DL 3.10 MG/DL (0.60-1.30) (0.60-1.30) Estimat Glomerular Filtration 11 ML/MIN (>89) 19 ML/MIN (>89) Rate Random Glucose 247 MG/DL 165 MG/DL (74-106) (74-106) Calcium Level 7.8 MG/DL 7.7 MG/DL (8.5-10.1) (8.5-10.1) Aspartate Amino Transf 14 U/L (15-37) (AST/SGOT) Albumin 3.0 GM/DL 2.5 GM/DL (3.4-5.0) (3.4-5.0) Urine Turbidity HAZY (CLEAR) Urine Glucose (UA) 300 mg/dL (NEG) Urine Occult Blood MOD (NEG) Urine Leukocyte Esterase LARGE (NEG) Urine RBC 67 /hpf (0-3) Urine WBC Clumps FEW (NONE) Urine Bacteria RARE /hpf (NONE) Urine Mucus FEW /lpf (OCC) Total Protein 5.9 GM/DL (6.4-8.2) Imaging Last Impressions Chest X-Ray 10/24/1611 Signed Impressions: Service Date/Time: Monday, October 24, 2016 00:15 - CONCLUSION: No acute finding is identified. Jay Aldana MD Abdomen/Pelvis CT 10/24/1611 Signed Impressions: Service Date/Time: Monday, October 24, 2016 00:39 - CONCLUSION: 1. Very distended urinary bladder with mild hydronephrosis and hydroureter bilaterally. Additionally, the prostate gland is enlarged raising suspicion for bladder outlet obstruction. There are dependent stones in the urinary bladder measuring up to 6 mm. 2. Non acute findings included cholelithiasis, small hiatal hernia , moderate atherosclerotic disease, and sigmoid diverticulosis. Jay Aldana MD Renal Ultrasound 10/24/16 0000 Signed Impressions: Service Date/Time: Monday, October 24, 2016 13:55 - CONCLUSION: No hydronephrosis. Jay Carcamo MD PE at Discharge GENERAL: in NAD CARDIOVASCULAR: Regular rate and rhythm without murmurs, gallops, or rubs. RESPIRATORY: Breath sounds equal bilaterally. No accessory muscle use. GASTROINTESTINAL: Abdomen soft, non-tender,obese belly. BACK: Nontender without obvious deformity. No CVA tenderness. Pt update on day of discharge Follow-up for obstructive uropathy and acute renal failure Patient very anxious to go home. Denies nausea vomiting abdominal pain. He remains afebrile. Hospital Course 86 y/o male visiting from [place] with his daughter presented with generalized weakness and poor appetite. He was found to have obstructive uropathy upon ER evaluation. Obstructive uropathy - Abdomen/Pelvis CT showed very distended urinary bladder with mild hydronephrosis and hydroureter bilaterally. Enlarged prostate gland and dependent stones and urinary bladder measuring up to 6 mm. - Perez catheter placed in ER due to retention- 1600cc drained and symptoms resolved. - urology and stated to continue to Perez catheter to gravity as outpatient. For patient to follow with his urologist. Asymptomatic bacteriuria -Patient. He was started on Cefepime 2 grams IV q12h - urine cultures are negative so was discontinued. Acute renal failure - BUN 55, creatinine 4.97, estimated GFR 11 - no prior labs to compare to. -Most likely secondary to obstructive uropathy. Patient was also given IV fluids with resolution of his acute renal failure. -Treatment as above. Type 2 Diabetes Mellitus - Accu-Cheks before meals and at bedtime with low-dose NovoLog sliding scale coverage - Hypoglycemia protocol - Monitor trends and blood glucose readings and adjust treatments as indicated - 1800 kcal ADA diet Pt Condition on Discharge: Stable Discharge Disposition: Discharge Home Discharge Time: > 30 minutes Discharge Instructions DIET: Follow Instructions for: Coumadin (Warfarin) Diet Activities you can perform: Regular-No Restrictions Follow up Referrals: PCP Follow-up - 1 Week Urology - 1 Week Continued Medications: Cholecalciferol (Vitamin D3) 1,000 Unit Tab 1000 UNITS PO DAILY Nutritional Supplement #1 Ref 0 BOTTLE Cyanocobalamin (Vitamin B-12) 1,000 Mcg Tab 1000 MCG PO DAILY Nutritional Supplement #1 Ref 0 BOTTLE Glipizide ER (Glipizide XL) 2.5 Mg Tom 2.5 MG PO WITH DINNER Take with breakfast or first main meal of the day Blood Sugar Management #30 Ref 0 TAB Warfarin (Warfarin) 3 Mg Tab 3.5 MG PO WITH DINNER Blood Clot Prevention #30 Ref 0 TAB Discontinued Medications: Metformin (Metformin) 850 Mg Tab 850 MG PO DAILY With a meal Blood Sugar Management Ref 0 TAB Sherice Cook MD Oct 25, 2016 15:49
== END 2016-10-25 17:34 | disposition home or self-care (01) | DRG 690 ==
LOC: NEPE 23:41 → NEDA 10-24 01:35 → NEDH 10-24 05:35 → HOCA 10-24 11:53
PROVIDERS: ADMIT Family Medicine; ATTEND Family Medicine
DX: N39.0 Urinary tract infection, site not specified (principal); N17.9 Acute kidney failure, unspecified; E11.22 Type 2 diabetes mellitus with diabetic chronic kidney disease; I48.91 Unspecified atrial fibrillation; Z79.84 Long term (current) use of oral hypoglycemic drugs; Z79.01 Long term (current) use of anticoagulants; N40.1 Benign prostatic hyperplasia with lower urinary tract symptoms; N13.8 Other obstructive and reflux uropathy; R33.9 Retention of urine, unspecified; I12.9 Hypertensive chronic kidney disease with stage 1 through stage 4 chronic kidney disease, or unspecified chronic kidney disease; N18.9 Chronic kidney disease, unspecified; N21.0 Calculus in bladder
CPT/HCPCS: 51702; 71010; 74176; 76775; 80053; 81001; 82948; 83605; 83690; 85025; 85610; 85730; 87040; 87086; 93005; 96361; 96374; J0692; J1644; J1815; J2405; J7040